=== PATIENT | female | born 1975 | race Caucasian/White ===

== ENCOUNTER 2016-08-07 19:28 | Emergency (ER) | payer MEDICAID ==
[2016-08-07 19:52] VITALS: TEMP 96.8
--- NOTE | 2016-08-07 20:30 | UCPHY ---
H & P Time Seen by Provider: 08/07/16 20:16 Patient Type: Established HPI/ROS: HPI Left ankle injury. 40-year-old female by private vehicle with her . This patient reports that she was coming down her stairs at home. She slipped slightly and inverted her left ankle. She has a history of a prior left ankle surgery. She reports that she felt a pop. She complains of pain primarily over the lateral aspect of the ankle but some of the medial aspect as well. She did not fall to the ground. She was able to catch herself on the banister. No other complaint or injury. ROS: Constitutional: No fever, no chills. No weakness. Musculoskeletal: No back pain. No neck pain. As above. No other extremity pain. Skin: No lacerations or abrasions. Neurological: No focal weakness or altered sensation. Past medical history:As above. Social history: Here with her . Physical Exam: General Appearance: Alert, no distress. This patient is responding to questions appropriately and in full sentences. This patient appears well- hydrated and well-nourished. Eyes: Pupils equal and round no pallor or injection. No lid edema, erythema or injection. Left ankle exam: There is no significant swelling. No ecchymosis. The skin is intact. The left foot is neurovascularly intact. No erythema or warmth. It is symmetric with the right ankle. She does have tenderness over the lateral malleolus and medial malleolus. Neurological: Motor sensory function is grossly intact. Cranial nerves are normal. Ambulating with a cane favoring the left ankle. Skin: Warm and dry, no rashes. Extremities are symmetrical. All joints range without pain or impingement. Except noted. Psychiatric: No agitation. No depression. Database: EKG: Imaging: Left ankle x-ray series: Negative for fracture, subluxation, dislocation. Hardware is intact. Osteopenia noted. Interpreted by me. Procedures: Emergency department course: From triage, the patient was sent for x-rays. Results of x-rays discussed with her. She was placed in an orthopedic boot. She will be provided crutches. She was instructed on weight-bearing only as tolerated. She will follow up with her primary care physician for re-evaluation in 1-2 days. She will be referred to an chief specialist leed by her primary care physician as needed. She cannot remember the name of her chief specialist leed who is down in [place]. Return to Urgent Care precautions discussed. All of her questions were answered. She was discharged in good condition. Differential Diagnosis: The differential diagnosis on this patient includes but is not limited to Left ankle sprain. Fracture, subluxation, dislocation of the left ankle unlikely. This represents a partial list of diagnoses considered. These considerations are based on history, physical exam, past history, reassessment and diagnostic testing. Smoking Status: Never smoked Constitutional: Initial Vital Signs Temperature (C) 36 C 08/07/16 19:49 Heart Rate 78 08/07/16 19:49 Respiratory Rate 18 08/07/16 19:49 O2 Sat (%) 94 08/07/16 19:49 O2 Delivery Mode Room Air Allergies/Adverse Reactions: chlorhexidine [Chlorhexidine] Allergy (Severe, Verified 12/14/15 22:42) Hives hydromorphone HCl [From Dilaudid] Allergy (Severe, Verified 12/14/15 22:42) Anaphylaxis Iodinated Contrast Media - Oral and Allergy (Severe, Verified 12/14/15 22:42) Anaphylaxis Penicillins Allergy (Severe, Verified 12/14/15 22:42) Hives adhesive [Adhesive] Allergy (Mild, Verified 12/14/15 22:42) Hives fentanyl Allergy (Unknown, Verified 12/14/15 22:42) codeine [Codeine] Adverse Reaction (Intermediate, Verified 12/14/15 22:42) Vomiting diclofenac sodium [From Voltaren] Adverse Reaction (Intermediate, Verified 12/13 22:42) Vomiting iodine [Iodine] Adverse Reaction (Intermediate, Verified 12/14/15 22:42) Hives Home Medications: Medication Instructions Recorded Albuterol [Proventil 2 mg (RX)] 2 mg PO TID 02/18/13 ESOMEPRAZOLE MAG TRIHYDRATE 40 mg PO DAILY 02/18/13 [NEXIUM] Estradiol [VAGIFEM] 10 mcg VG 02/18/13 Fluticasone/Salmeter 250/50Mcg 1 puffs IH BIDI 02/18/13 [Advair] Montelukast Sodium [Singulair 10 10 mg PO DAILY@1800 02/18/13 mg (RX)] Nabumetone [RELAFEN 750MG (RX)] 750 mg PO BIDMEAL 02/18/13 Nortriptyline HCl 50 mg PO 02/18/13 RIZATRIPTAN BENZOATE [Maxalt Supervisor Of Officials] 10 mg PO 02/18/13 SUMAtriptan [Imitrex 50 MG (RX)] 50 mg PO Q2H 02/18/13 Verapamil HCl [Verelan] 240 mg PO 02/18/13 Flexeril 07/11/15 Flomax 0.4 MG (RX) 07/11/15 GABAPENTIN 07/11/15 Topomax 07/11/15 Acyclovir [Zovirax 400 mg (RX)] 400 mg PO 5XD #20 tab 12/14/15 Departure - Departure Disposition: Home, Routine, Self-Care Clinical Impression: Sprain of left ankle Condition: Good Instructions: Ankle Sprain (ED) Additional Instructions: Read and follow provided instructions. Weight-bearing to your left ankle only as tolerated. Ibuprofen dosin mg every 6 hours with meals for the next 3 days only. Follow-up with your primary care physician in 1-2 days for re-evaluation and referral to an chief specialist leed as needed. Return to the emergency department for worsening pain, discoloration, loss of sensation or other serious concerns. Referrals: [place],. [Primary Care Provider] - As per Instructions - PQRS PQRS Measurement: 134: Depression screening and followup, PRIME MD-PHQ2 (12 years and older) Over the last 2 weeks, how often have you been bothered by any of the following problems? 1. Feeling down, depressed, or hopeless? 2. Little interest or pleasure in doing things? Answered no to both questions. 130: Documentation of medications. Reviewed all patient medications, doses, route and frequency. 226: Do you smoke? No. 47: 65 and older: Advanced care planning. Patient designates surrogate decision maker as spouse. 51: 18 years old and older with diagnosis of COPD, spirometry performance. NA 52: 18 years old and older with COPD and symptoms of COPD or FEV1<60% predicted prescribed a B Agonist. NA
[2016-08-07 20:58] VITALS: BP 134/100; PULSE 88; RESP 16; O2SAT 98
--- NOTE | 2016-08-07 21:21 | DX ---
Three Views, Left Ankle August 07, 2016 Clinical Indication: Ankle pain. Comparison: December 14, 2008. FINDINGS: There has been a prior calcaneal repair. Mild arthritic changes of the ankle are present. No evidence of a fracture. IMPRESSIONS 1. Prior calcaneal repair. 2. Osteoarthritis. 3. No evidence of acute fracture.
== END 2016-08-07 21:00 | disposition home or self-care (01) ==
LOC: CED 19:28
DX: S93.402A Sprain of unspecified ligament of left ankle, initial encounter (principal); W10.9XXA Fall (on) (from) unspecified stairs and steps, initial encounter
CPT/HCPCS: 73610-PO; 99214-PO; G0463-PO; L4386